=== PATIENT | female | born 1980 | race Caucasian/White ===

== ENCOUNTER → 2022-02-03 12:47 | Outpatient (CLI) | payer OTHER, SELFPAY ==
--- NOTE | ~2022-02-03 | MM_ITS ---
EXAMINATION: MM screening oswaldo BI w juliette HISTORY: Screening mammogram TECHNIQUE: Craniocaudal and mediolateral oblique 3-D tomosynthesis images were obtained and synthetic 2-D images were generated. CAD analysis was submitted and interpreted. COMPARISON: No prior mammogram is available for comparison at this institution. BREAST PARENCHYMAL COMPOSITION: The breasts are extremely dense, which lowers the sensitivity of mamm ography. FINDINGS: Scattered bilateral benign calcifications are noted in both breasts. There is no evidence o f suspicious mass, calcification, or architectural distortion to suggest malignancy in either breast. There has been no suspicious interval change. IMPRESSION: 1. No mammographic evidence of malignancy. 2. Recommend routine screening mammography in one year. BI-RADS Category 2: Benign finding(s). Reviewed, dictated and finalized at location A.
== END ==
PROVIDERS: PCP Nurse Practitioner; Visit Provider Nurse Practitioner
DX: Z12.31 Encounter for screening mammogram for malignant neoplasm of breast (principal)
CPT/HCPCS: 77063; 77067

== ENCOUNTER 2023-10-01 10:39 | Outpatient (CLI) | payer OTHER, SELFPAY ==
--- NOTE | ~2023-10-01 | MR_ITS ---
MR breast BI wo/w con 10/01/2023 12:02 CDT INDICATION: TECHNIQUE: MRI of the breasts perform using standard protocol pre-and post IV contrast with the follo wing sequences: Axial T2 STIR, axial T1, axial vibrant T1 with fat suppression precontrast and multip hasic postcontrast. COMPARISON: Mammogram dated 02/03/2022 FINDINGS: There are no abnormalities on the precontrast sequences. There is mild background parenchym al enhancement. In the lower outer quadrant of the right breast at 8:00 anteriorly, 2.9 cm from the n ipple there is a 9 mm mass which is isointense on T1 and T2 sequences with rounded circumscribed conf iguration, homogeneous enhancement with rapid washout kinetics. No evidence of signal abnormalities i n the axillary or internal mammary node distributions. LEFT BREAST: No signal abnormalities on precontrast sequences. There is mild background parenchymal enhancement. No enhancing lesions following contrast administration. No areas of enhancement meeti ng threshold criteria on CAD analysis. No evidence of signal abnormalities in the axillary or inter nal mammary node distributions.] IMPRESSION: 1: Right breast: Abnormal 9 mm right breast mass located at 8:00, 2.9 cm from the nipple in the lowe r outer quadrant with rapid washout enhancement. Correlation with diagnostic bilateral mammogram and right breast ultrasound recommended. 2: Left breast: Negative. No evidence of malignancy. BI-RADS CATEGORY 0 - INCOMPLETE STUDY, NEED ADDITIONAL IMAGING EVALUATION. Reviewed, dictated and finalized at location A. IMPRESSION: 1: Right breast: Abnormal 9 mm right breast mass located at 8:00, 2.9 cm from the nipple in the lower outer quadrant with rapid washout enhancement. Correlat ion with diagnostic bilateral mammogram and right breast ultrasound recommended . 2: Left breast: Negative. No evidence of malignancy. BI-RADS CATEGORY 0 - INCOMPLETE STUDY, NEED ADDITIONAL IMAGING EVALUATION.
== END 2023-10-01 10:40 | disposition home or self-care (01) ==
PROVIDERS: PCP Nurse Practitioner; Visit Provider Obstetrics & Gynecology Gynecology
DX: R92.2 Inconclusive mammogram (principal)
CPT/HCPCS: 77049; A9577; C8908

== ENCOUNTER 2023-10-21 12:49 | Outpatient (CLI) | payer OTHER, SELFPAY ==
--- NOTE | ~2023-10-21 | MMUS_ITS ---
EXAMINATION: MM diagnostic oswaldo BI w juliette, US breast BI complete HISTORY: Abnormal 9 mm right breast mass reported at 8:00 2.9 cm from the nipple in the lower inner q uadrant on 10/01/2023 MR breast examination TECHNIQUE: ML, MLO and CC 3-D tomosynthesis images of both breasts were performed and synthetic 2-D i mages were generated. CAD analysis was submitted and interpreted. High resolution complete bilateral breast ultrasound examination including all 4 quadrants and subareolar areas was performed. COMPARISON: 10/01/2023 MRI breast examination 02/03/2022 bilateral screening mammogram BREAST PARENCHYMAL COMPOSITION: The breasts are extremely dense, which lowers the sensitivity of mamm ography. FINDINGS: MAMMOGRAPHIC FINDINGS: Bilateral partially obscured breast masses are noted. No suspicious mass or architectural distortion is evident. No malignant calcification is noted. There are scattered bilateral benign calcifications. ULTRASOUND: Multiple bilateral breast cysts are noted, some simple, some septated and some complicated, the large st on the right a multi septated cyst at 11:00 measuring up to 12.5 mm dimension, the largest on the left situated at 1:00 5 cm from nipple, measuring 1.5 cm dimension. No suspicious solid lesion or shadowing is evident. IMPRESSION: 1. Multiple bilateral benign-appearing cysts 2. Routine annual mammographic screening is recommended; consider supplemental ultrasound examination because of the very dense stroma. 3. No mammographic or sonographic correlate for the abnormal mass of the right breast 8:00; consider MR guided biopsy. BI-RADS Category 2: Benign finding(s). Despite the benign mammographic and sonographic findings, consideration should be given to possible M R guided biopsy of the right 8:00 breast lesion 2.9 cm from the nipple reported on 10/01/2023 MR cosme t examination Reviewed, dictated and finalized at location A. IMPRESSION: 1. Multiple bilateral benign-appearing cysts 2. Routine annual mammographic screening is recommended; consider supplemental ultrasound examination because of the very dense stroma. 3. No mammographic or sonographic correlate for the abnormal mass of the right breast 8:00; consider MR guided biopsy. BI-RADS Category 2: Benign finding(s). Despite the benign mammographic and sonographic findings, consideration should be given to possible MR guided biopsy of the right 8:00 breast lesion 2.9 cm fr om the nipple reported on 10/01/2023 MR breast examination
== END 2023-10-21 12:50 | disposition home or self-care (01) ==
PROVIDERS: PCP Nurse Practitioner; Visit Provider Obstetrics & Gynecology Gynecology
DX: R92.8 Other abnormal and inconclusive findings on diagnostic imaging of breast (principal)
CPT/HCPCS: 76641; 77062; 77066; G0279